=== PATIENT | female | born 1940 | race Caucasian/White ===

== ENCOUNTER 2019-08-15 10:42 | Emergency (ER) | payer MEDICARE, OTHER ==
--- NOTE | 2019-08-15 11:07 | ER Document Report ---
ED Medical Screen (RME) - General Chief Complaint: General Weakness Stated Complaint: WEAKNESS Time Seen by Provider: 08/15/19 10:56 Primary Care Provider: BURT ZAVALETA MD [Primary Care Provider] - Follow up as needed TRAVEL OUTSIDE OF THE [place] IN LAST 30 DAYS: No - HPI Notes: 08/15/19 11:04 6-year-old female with a past medical history of diabetes hypertension hyperl ipidemia presents to the emergency room for lethargy and confusion that started around 3:00 this morning. states that he woke up around 3:00 and patient was sitting at the foot of the bed, did not know which direction the bathroom was which was concerning to him. is concerned about a possible stroke. patient states her blood pressure is elevated today at 176/82, normalized in the 140s to 180s. Patient states she vomited all day yesterday. She did get her flu shot. Denies any chest pain shortness of breath, diarrhea, rashes. Denies any new medications. Patient is supposed to be going to [facility] tomorrow for a TIPS procedure. I have greeted and performed a rapid initial assessment of this patient. A comprehensive ED assessment and evaluation of the patient, analysis of test results and completion of the medical decision making process will be conducted by additional ED providers. PHYSICAL EXAMINATION: GENERAL: Well-appearing, well-nourished and in no acute distress. HEAD: Atraumatic, normocephalic. EYES: Pupils equal round extraocular movements intact, conjunctiva are normal. NECK: Normal range of motion LUNGS: No respiratory distress Musculoskeletal: Normal range of motion NEUROLOGICAL: Normal speech, normal gait. history tutor +2 equally. tongue midline. face symmetrical.AAO x3 PSYCH: Normal mood, normal affect. SKIN: Warm, Dry, normal turgor, no rashes or lesions noted. 08/15/19 11:06 - Related Data Allergies/Adverse Reactions: shellfish derived Allergy (Severe, Verified 08/15/19 10:49) BREATHING DIFFICULTIES soy Allergy (Severe, Verified 08/15/19 10:49) RESP DISTRESS ciprofloxacin [From Cipro] Adverse Reaction (Verified 08/15/19 10:49) Swelling of Throat duloxetine HCl [From Cymbalta] Adverse Reaction (Verified 08/15/19 10:49) Delirium ferrous sulfate Adverse Reaction (Verified 08/15/19 10:49) Nausea oxycodone HCl [From Percocet] Adverse Reaction (Verified 08/15/19 10:49) Nausea Past Medical History - Past Medical History Cardiac Medical History: Reports: Hx Hypertension - MEDICATED Denies: Hx Heart Attack Pulmonary Medical History: Denies: Hx Asthma Neurological Medical History: Denies: Hx Cerebrovascular Accident, Hx Seizures GI Medical History: Denies: Hx Hepatitis, Hx Ulcer Infectious Medical History: Denies: Hx Hepatitis Past Surgical History: Reports: Hx Open Heart Surgery - CABG X 3 2008. Denies: Hx Mastectomy, Hx Pacemaker Physical Exam - Vital signs Vitals: Temp Pulse Resp BP Pulse Ox 98.6 F 77 19 176/82 H 98 08/15/19 10:48 08/15/19 10:48 08/15/19 10:48 08/15/19 10:48 08/15/19 10:48 Course - Vital Signs Vital signs: Temp Pulse Resp BP Pulse Ox 98.6 F 77 19 176/82 H 98 08/15/19 10:48 08/15/19 10:48 08/15/19 10:48 08/15/19 10:48 08/15/19 10:48 Doctor's Discharge - Discharge Referrals: BURT ZAVALETA MD [Primary Care Provider] - Follow up as needed
[2019-08-15 12:20] LABS: ABSOLUTE EOSINOPHILS # (AUTO) 0.1 10^3/uL (0.0-0.6); ABSOLUTE LYMPHOCYTES (AUTO) 1.6 10^3/uL (0.5-4.7); ABSOLUTE MONOCYTES (AUTO) 0.9 10^3/uL (0.1-1.4); BASOPHILS % (AUTO) 0.3 % (0-2); EOSINOPHILS % (AUTO) 1.5 % (0-6); HEMATOCRIT 38.9 % (36.0-47.0); HEMOGLOBIN 13.5 g/dL (12.0-15.5); LYMPHOCYTES % (AUTO) 18.6 % (13-45); MEAN CORPUSCULAR HEMOGLOBIN 30.9 pg (27.0-33.4); MEAN CORPUSCULAR HGB CONC 34.7 g/dL (32.0-36.0); MEAN CORPUSCULAR VOLUME 89 fl (80-97); MONOCYTES % (AUTO) 10.1 % (3-13); PLATELET COUNT 143 10^3/uL (150-450); RED BLOOD COUNT 4.37 10^6/uL (3.72-5.28); RED CELL DISTRIBUTION WIDTH 16.4 % (11.5-14.0); SEGMENTED NEUTROPHILS % (AUTO) 69.5 % (42-78); TOTAL CELLS COUNTED % (AUTO) 100 %; WHITE BLOOD COUNT 8.6 10^3/uL (4.0-10.5)
[2019-08-15 12:24] LABS: INTERNATIONAL RATION (INR) 1.23; PARTIAL THROMBOPLASTIN TIME 31.4 SEC (23.5-35.8); PROTHROMBIN TIME 15.6 SEC (11.4-15.4)
--- NOTE | 2019-08-15 12:33 | RADIOLOGY REPORT (SQ) ---
EXAM DESCRIPTION: CT HEAD WITHOUT COMPLETED DATE/TIME: 08/15/2019 12:14 pm REASON FOR STUDY: AMS COMPARISON: None. TECHNIQUE: Axial images acquired through the brain without intravenous contrast. Images reviewed wi th bone, brain and subdural windows. Additional sagittal and coronal reconstructions were generated. Images stored on PACS. All CT scanners at this facility use dose modulation, iterative reconstruction, and/or weight based d osing when appropriate to reduce radiation dose to as low as reasonably achievable (ALARA). [facility]: Dose Right [facility]: CareDose [facility]: Dose Right [facility]: Teradose 4D [facility]: Smart Clinc! RADIATION DOSE: CT Rad equipment meets quality standard of care and radiation dose reduction techniq ues were employed. CTDIvol: 53.2 mGy. DLP: 1070 mGy-cm. mGy. LIMITATIONS: None. FINDINGS: VENTRICLES: Normal size and contour. CEREBRUM: No masses. No hemorrhage. No midline shift. No evidence for acute infarction. Normal gra y/white matter differentiation. No areas of low density in the white matter. CEREBELLUM: No masses. No hemorrhage. No alteration of density. No evidence for acute infarction. EXTRAAXIAL SPACES: No fluid collections. No masses. ORBITS AND GLOBE: No intra- or extraconal masses. Normal contour of globe without masses. CALVARIUM: No fracture. PARANASAL SINUSES: No fluid or mucosal thickening. SOFT TISSUES: No mass or hematoma. OTHER: No other significant finding. IMPRESSION: No acute intracranial pathology. EVIDENCE OF ACUTE STROKE: NO. COMMENT: Quality ID # [id number]: Final reports with documentation of one or more dose reduction techniques (e.g., Automated exposure control, adjustment of the mA and/or kV according to patient size, use of iterative reconstruction technique) TECHNICAL DOCUMENTATION: JOB ID: [id number] [employer]- All Rights Reserved Reading location - IP/workstation name: [email or web address]
--- NOTE | 2019-08-15 12:37 | RADIOLOGY REPORT (SQ) ---
EXAM DESCRIPTION: CHEST SINGLE VIEW COMPLETED DATE/TIME: 08/15/2019 12:09 pm REASON FOR STUDY: AMS COMPARISON: 05/14/2010 EXAM PARAMETERS: NUMBER OF VIEWS: One view. TECHNIQUE: Single frontal radiographic view of the chest acquired. RADIATION DOSE: NA LIMITATIONS: None. FINDINGS: LUNGS AND PLEURA: No opacities, masses or pneumothorax. No pleural effusion. MEDIASTINUM AND HILAR STRUCTURES: No masses. Contour normal. HEART AND VASCULAR STRUCTURES: Heart normal in size. Normal vasculature. BONES: No acute findings. HARDWARE: Sternotomy wires are in place. OTHER: No other significant finding. IMPRESSION: NO ACUTE RADIOGRAPHIC FINDING IN THE CHEST. TECHNICAL DOCUMENTATION: JOB ID: [id number] [employer]- All Rights Reserved Reading location - IP/workstation name: [email or web address]
[2019-08-15 12:39] LABS: ALBUMIN 4.1 g/dL (3.5-5.0); ALKALINE PHOSPHATASE 162 U/L (38-126); ANION GAP 13 (5-19); ASPARTATE AMINO TRANSFERASE 32 U/L (14-36); BILIRUBIN,DIRECT 0.1 mg/dL (0.0-0.4); BILIRUBIN,TOTAL 1.4 mg/dL (0.2-1.3); BLOOD UREA NITROGEN 36 mg/dL (7-20); CALCIUM 10.6 mg/dL (8.4-10.2); CARBON DIOXIDE 20 mmol/L (22-30); CHLORIDE 106 mmol/L (98-107); GLUCOSE 129 mg/dL (75-110); TOTAL PROTEIN 7.2 g/dL (6.3-8.2)
--- NOTE | 2019-08-15 14:12 | ER Document Report ---
ED General - General Chief Complaint: General Weakness Stated Complaint: WEAKNESS Time Seen by Provider: 08/15/19 10:56 Primary Care Provider: BURT ZAVALETA MD [Primary Care Provider] - Follow up as needed Notes: Ms. Adrian is a 78yo f w/ PMH diabetes, hypertension, hyperlipidemia, Palomares status post TIPS on 08 03 presenting to the ED for an episode of confusion and lethargy earlier today. states that he woke up sometime between 2 or 3 AM and found her standing at the foot of the bed. She asked him where the bathroom was and he told her. Then she told him "nevermind I do not have to go to the bathroom anymore" and went back to bed. Patient states that she had one very large episode of vomiting yesterday. The day prior, she had 3-4 episodes of nonbloody brown diarrhea. She also adds that she is supposed to be taking lactulose multiple times a day to ensure that she has at least 3 bowel movements daily status post TIPS procedure. Patient denies any fever, chills, chest pain, shortness of breath, cough, abdominal pain. However she does endorse that she has increased urinary frequency as well as dysuria. She also adds that she is scheduled to go to [place] tomorrow for a hiatal hernia repair. Later she and her remembered that she was diagnosed with a UTI this past Wednesday, initiated on doxycycline however she only took 2 days of this antibiotic. She states that her symptoms are still persistent. TRAVEL OUTSIDE OF THE [place] IN LAST 30 DAYS: No - Related Data Allergies/Adverse Reactions: shellfish derived Allergy (Severe, Verified 08/15/19 10:49) BREATHING DIFFICULTIES soy Allergy (Severe, Verified 08/15/19 10:49) RESP DISTRESS ciprofloxacin [From Cipro] Adverse Reaction (Verified 08/15/19 10:49) Swelling of Throat duloxetine HCl [From Cymbalta] Adverse Reaction (Verified 08/15/19 10:49) Delirium ferrous sulfate Adverse Reaction (Verified 08/15/19 10:49) Nausea oxycodone HCl [From Percocet] Adverse Reaction (Verified 08/15/19 10:49) Nausea Past Medical History - Social History Smoking Status: Never Smoker Family History: Reviewed & Not Pertinent Patient has suicidal ideation: No Patient has homicidal ideation: No - Past Medical History Cardiac Medical History: Reports: Hx Hypertension - MEDICATED Denies: Hx Heart Attack Pulmonary Medical History: Denies: Hx Asthma Neurological Medical History: Denies: Hx Cerebrovascular Accident, Hx Seizures GI Medical History: Denies: Hx Hepatitis, Hx Ulcer Infectious Medical History: Denies: Hx Hepatitis Past Surgical History: Reports: Hx Open Heart Surgery - CABG X 3 2008. Denies: Hx Mastectomy, Hx Pacemaker Review of Systems - Review of Systems Constitutional: See HPI EENT: No symptoms reported Cardiovascular: No symptoms reported Respiratory: No symptoms reported Gastrointestinal: See HPI Genitourinary: See HPI Female Genitourinary: See HPI Musculoskeletal: No symptoms reported Skin: No symptoms reported Hematologic/Lymphatic: No symptoms reported Neurological/Psychological: No symptoms reported Physical Exam - Vital signs Vitals: Temp Pulse Resp BP Pulse Ox 98.6 F 77 19 176/82 H 98 08/15/19 10:48 08/15/19 10:48 08/15/19 10:48 08/15/19 10:48 08/15/19 10:48 Interpretation: Hypertensive - General General appearance: Appears well, Alert - HEENT Head: Normocephalic, Atraumatic Eyes: Normal Pupils: PERRL - Respiratory Respiratory status: No respiratory distress Chest status: Nontender Breath sounds: Normal Chest palpation: Normal - Cardiovascular Rhythm: Regular Heart sounds: Normal auscultation Murmur: No - Abdominal Inspection: Normal Distension: No distension Bowel sounds: Normal Tenderness: Nontender Organomegaly: No organomegaly - Back Back: Normal, Nontender - Extremities General upper extremity: Normal inspection, Nontender, Normal color, Normal ROM, Normal temperature General lower extremity: Normal inspection, Nontender, Normal color, Normal ROM, Normal temperature, Normal weight bearing. No: Cheli's sign - Neurological Neuro grossly intact: Yes Cognition: Normal Orientation: AAOx4 Tyron Coma Scale Eye Opening: Spontaneous Tyron Coma Scale Verbal: Oriented Tyron Coma Scale Motor: Obeys Commands Tyron Coma Scale Total: 15 Speech: Normal Motor strength normal: LUE, RUE, LLE, RLE Sensory: Normal - Psychological Associated symptoms: Normal affect, Normal mood - Skin Skin Temperature: Warm Skin Moisture: Dry Skin Color: Normal Course - Re-evaluation Re-evalutation: Patient is generally well-appearing and nontoxic. Initial vitals notable for elevated blood pressure. Differential diagnosis includes UTI, pneumonia (less likely), encephalopathy, electrolyte abnormality, dehydration Here upon evaluation, the patient is AxO x4 and is able to answer questions without any issues. Patient has otherwise completely normal neuro examination. Patient does states she is not taking her lactulose and therefore could have an elevated ammonia. CBC otherwise unremarkable. H&H is stable. PT/INR notable for mildly elevated INR, consistent with known liver disease. CMP notable for mildly elevated bili. Alk phos is slightly elevated at 162. 08/15/19 14:12 CT head and chest x-ray both within normal limits. No acute findings. 08/15/19 16:29 insists patient updated on results. Ammonia is elevated at 64 therefore will administer dose of lactulose now. Patient did state that she forgot to take any of her lactulose today. Patient's UA also was consistent with a UTI. She was diagnosed with a UTI on Wednesday by her primary care doctor and initiated on doxycycline however she only took antibiotics on Wednesday, Wednesday and Wednesday. 08/15/19 17:08 Patient given ceftriaxone here. Will DC with Keflex. Recommended that she completely stop her doxycycline altogether. Nursing staff took time to coordinate patient's care with her team at [facility] for her upcoming TIPS procedure. Family provided with return precautions. Recommended she continue using her lactulose when she goes home. Patient did have a large bowel movement here in the ED. - Vital Signs Vital signs: Temp Pulse Resp BP Pulse Ox 97.5 F 78 14 145/62 H 98 08/15/19 19:31 08/15/19 19:31 08/15/19 19:31 08/15/19 19:31 08/15/19 19:31 - Laboratory Result Diagrams: 08/15/19 11:35 08/15/19 11:35 Laboratory results interpreted by me: 08/15/19 08/15/19 08/15/19 11:03 11:31 11:35 RDW 16.4 H Plt Count 143 L PT Carbon Dioxide BUN Glucose POC Glucose 133 H 127 H Calcium Total Bilirubin Alkaline Phosphatase Ammonia NT-Pro-B Natriuret Pep Urine Blood Urine Nitrite Ur Leukocyte Esterase Urine Ascorbic Acid 08/15/19 08/15/19 08/15/19 11:35 11:35 11:35 RDW Plt Count PT 15.6 H Carbon Dioxide 20 L BUN 36 H Glucose 129 H POC Glucose Calcium 10.6 H Total Bilirubin 1.4 H Alkaline Phosphatase 162 H Ammonia NT-Pro-B Natriuret Pep 813 H Urine Blood Urine Nitrite Ur Leukocyte Esterase Urine Ascorbic Acid 08/15/19 08/15/19 13:15 14:28 RDW Plt Count PT Carbon Dioxide BUN Glucose POC Glucose Calcium Total Bilirubin Alkaline Phosphatase Ammonia 64.0 H NT-Pro-B Natriuret Pep Urine Blood SMALL H Urine Nitrite POSITIVE H Ur Leukocyte Esterase SMALL H Urine Ascorbic Acid 20 H Discharge - Discharge Clinical Impression: UTI (urinary tract infection), Confusion, Hyperammonemia Condition: Good Disposition: HOME, SELF-CARE Instructions: Cephalexin ([facility]), Urinary Tract Infection ([facility]) Additional Instructions: It is important that you take at least 1-2 additional doses of your lactulose this evening. You have been prescribed antibiotics for your urinary tract infection. Make sure you take the full course of antibiotics and do not stop them early. You do not need to use the previous antibiotics that you were prescribed (doxycycline). I would recommend that you follow-up with your primary care doctor. In addition, when you go to do, I would also recommend that you tell them that you have a urinary tract infection and that your ammonia today was 64. It is important that you have multiple bowel movements this evening and tomorrow morning therefore please make sure you take additional do ses of lactulose this evening. Prescriptions: Cephalexin Monohydrate [Keflex 500 mg Capsule] 500 mg PO TID 6 Days #18 capsule Referrals: BURT ZAVALETA MD [Primary Care Provider] - Follow up as needed
--- NOTE | 2019-08-15 14:22 | EKG REPORT ---
SEVERITY:- ABNORMAL ECG - SINUS RHYTHM FIRST DEGREE AV BLOCK LVH WITH IVCD AND SECONDARY REPOL ABNRM : Confirmed by: Maninder Davidson 15-Aug-2019 14:22:08
[2019-08-15 15:02] LABS: APPEARANCE,URINE CLEAR; BILIRUBIN,URINE NEGATIVE (NEGATIVE); COLOR,URINE YELLOW; GLUCOSE, URINE NEGATIVE (NEGATIVE); KETONES,URINE NEGATIVE (NEGATIVE); LEUKOCYTE ESTERASE,URINE SMALL (NEGATIVE); NITRITE,URINE POSITIVE (NEGATIVE); PROTEIN,URINE NEGATIVE (NEGATIVE); URINE SPECIFIC GRAVITY 1.013; UROBILINOGEN,URINE NEGATIVE mg/dL (<2.0)
[2019-08-15] MEDS ORDERED: LACTULOSE SYRUP 20 GM/30 ML UDCUP PO ONE (16:28)
[2019-08-15] MEDS ORDERED: CEFTRIAXONE 1 GM/D5W RTU 1 GM/50 ML RTUPB IV ONE (16:28)
[2019-08-15 19:32] VITALS: BP 145/62
== END 2019-08-15 18:30 | disposition home or self-care (01) ==
LOC: ER 10:42
DX: N39.0 Urinary tract infection, site not specified (principal); E72.20 Disorder of urea cycle metabolism, unspecified; F44.89 Other dissociative and conversion disorders; R53.1 Weakness; R11.10 Vomiting, unspecified; E78.00 Pure hypercholesterolemia, unspecified; I10 Essential (primary) hypertension; E11.9 Type 2 diabetes mellitus without complications; Z88.3 Allergy status to other anti-infective agents; Z95.1 Presence of aortocoronary bypass graft
CPT/HCPCS: 93005; 99285; 51701; 96365; 36415; 82962; 82140; 85025; 85610; 85730; 80053; 81001; 84484; 83880; 71045; 70450; 93010; A9270; J0696

== ENCOUNTER 2019-09-16 02:06 | Emergency (ER) | payer MEDICARE, OTHER ==
--- NOTE | 2019-09-16 03:23 | ER Document Report ---
ED Head/Face/Scalp Injury - General Chief Complaint: Facial Injury Stated Complaint: FALL/FACIAL INJURY Time Seen by Provider: 09/16/19 02:31 Primary Care Provider: BURT ZAVALETA MD [Primary Care Provider] - Follow up in 3-5 days Mode of Arrival: Ambulatory Information source: Patient Notes: 78-year-old female presented to ED for complaint of falling hitting her face when she tripped over the blanket when she got up tonight. She states she was concerned because she just had a TIPS procedure on August 03 but is not having any abdominal pain at this time. Patient states she did not have any dizziness any headache she just tripped over the blanket and fell. TRAVEL OUTSIDE OF THE [place] IN LAST 30 DAYS: No - HPI Patient complains to provider of: Contusion, Injury, Swelling Injury to: Face, Forehead Location of problem: Other - Around the right eye and to the right cheek and just above the right side of her mouth Occurred: Just prior to arrival Where: Home, Indoors Timing: Still present Context: Fell Loss consciousness: No loss of consciousness Remembers: Injury, Coming to hospital - Related Data Allergies/Adverse Reactions: shellfish derived Allergy (Severe, Verified 08/15/19 10:49) BREATHING DIFFICULTIES soy Allergy (Severe, Verified 08/15/19 10:49) RESP DISTRESS ciprofloxacin [From Cipro] Adverse Reaction (Verified 08/15/19 10:49) Swelling of Throat duloxetine HCl [From Cymbalta] Adverse Reaction (Verified 08/15/19 10:49) Delirium fentanyl Adverse Reaction (Verified 09/16/19 02:26) Nausea ferrous sulfate Adverse Reaction (Verified 08/15/19 10:49) Nausea NSAIDS (Non-Steroidal Anti-Inflamma Adverse Reaction (Verified 09/16/19 02:26) oxycodone HCl [From Percocet] Adverse Reaction (Verified 08/15/19 10:49) Nausea Home Medications: aspirin, carvedilol, clotrimazole-betamethasone, esomeprazole, ezetimibe, lactulose, letrozole, mag oxide, multivitamin, miralax, occuvite, sotalol, sprionolactone, torsemide, toviaz, tresiba, trulicity, vitamin c, vitamin d, vitamin e, xifaxan, zinc sulfate, Past Medical History - General Information source: Patient - Social History Smoking Status: Never Smoker Chew tobacco use (# tins/day): No Frequency of alcohol use: None Drug Abuse: None Lives with: Family Family History: Reviewed & Not Pertinent Patient has suicidal ideation: No Patient has homicidal ideation: No - Past Medical History Cardiac Medical History: Reports: Hx Coronary Artery Disease, Hx Hypercholesterolemia, Hx Hypertension - MEDICATED Pulmonary Medical History: Reports: None EENT Medical History: Reports: None Neurological Medical History: Reports: None Endocrine Medical History: Reports: None Renal/ Medical History: Reports: None Malignancy Medical History: Reports: Hx Breast Cancer GI Medical History: Reports: Hx Colonoscopy, Hx Endoscopy Musculoskeletal Medical History: Reports Hx Arthritis, Reports Hx Musculoskeletal Deformity, Reports Hx Musculoskeletal Trauma Skin Medical History: Reports None Psychiatric Medical History: Reports: None Infectious Medical History: Reports: None Past Surgical History: Reports: Hx Breast Surgery - Right breast lumpectomy, Hx Cholecystectomy, Hx Open Heart Surgery - CABG X 3 2008, Hx Orthopedic Surgery - Left knee replacement back surgery, Hx Vascular Surgery - TIPS procedure. Denies: Hx Mastectomy - Lumpectomy Review of Systems - Review of Systems Constitutional: No symptoms reported EENT: Other - Faith-orbital hematoma Cardiovascular: No symptoms reported Respiratory: No symptoms reported Gastrointestinal: No symptoms reported Genitourinary: No symptoms reported Female Genitourinary: No symptoms reported Musculoskeletal: No symptoms reported Skin: Other - Patient has periorbital ecchymosis also bruising to the right side of her face. Bruises to her arm Hematologic/Lymphatic: No symptoms reported Neurological/Psychological: No symptoms reported -: Yes All other systems reviewed and negative Physical Exam - Vital signs Vitals: Temp Pulse Resp BP Pulse Ox 97.5 F 76 16 114/65 96 09/16/19 02:13 09/16/19 02:13 09/16/19 02:13 09/16/19 02:13 09/16/19 02:13 Interpretation: Normal - General General appearance: Appears well, Alert - HEENT Head: Normocephalic, Atraumatic Eyes: Normal Pupils: PERRL - Respiratory Respiratory status: No respiratory distress Chest status: Nontender Breath sounds: Normal Chest palpation: Normal - Cardiovascular Rhythm: Regular Heart sounds: Normal auscultation Murmur: No - Abdominal Inspection: Normal Distension: No distension Bowel sounds: Normal Tenderness: Nontender Organomegaly: No organomegaly - Back Back: Normal, Nontender - Extremities General upper extremity: Normal inspection, Nontender, Normal color, Normal ROM, Normal temperature General lower extremity: Normal inspection, Nontender, Normal color, Normal ROM, Normal temperature, Normal weight bearing. No: Cheli's sign - Neurological Neuro grossly intact: Yes Cognition: Normal Orientation: AAOx4 [place] Coma Scale Eye Opening: Spontaneous [place] Coma Scale Verbal: Oriented [place] Coma Scale Motor: Obeys Commands [place] Coma Scale Total: 15 Speech: Normal Cranial nerves: Normal Cerebellar coordination: Normal Motor strength normal: LUE, RUE, LLE, RLE Additional motor exam normals: Equal service delivery consultant Babinski reflex: Normal (flexor plantar) Sensory: Normal Biceps - Reflex grade: 2 = Normal Triceps - Reflex grade: 2 = Normal Brachioradialis - Reflex grade: 2 = Normal Knee - Reflex grade: 2 = Normal Ankle - Reflex grade: 2 = Normal - Psychological Associated symptoms: Normal affect, Normal mood - Skin Skin Temperature: Warm Skin Moisture: Dry Skin Color: Normal Course - Re-evaluation Re-evalutation: 09/16/19 09:24 Labs, CTA, and x-rays were given to patient for follow-up with her primary doctor. Patient was alert oriented respirations regular nonlabored speaking in full sentences. Patient denied any pain throughout her visit but she stated she would like some pain medicine and nausea medicine because this is probably going to start hurting later. Patient was discharged home with [place] [facility] dispense pack and encouraged to follow-up with her primary care doctor as soon as possible. Patient and verbalized understanding and agreement with treatment plan and patient was discharged home. - Vital Signs Vital signs: Temp Pulse Resp BP Pulse Ox 97.6 F 72 18 151/59 H 98 09/16/19 06:21 09/16/19 06:21 09/16/19 06:21 09/16/19 06:21 09/16/19 06:21 - Laboratory Result Diagrams: 09/16/19 03:45 09/16/19 03:45 Laboratory results interpreted by me: 09/16/19 09/16/19 03:45 03:45 RBC 3.17 L Hgb 10.6 L Hct 30.1 L RDW 19.2 H Plt Count 76 L Potassium 3.4 L BUN 24 H Glucose 231 H AST 43 H Alkaline Phosphatase 216 H - Diagnostic Test Radiology reviewed: Image reviewed, Reports reviewed Discharge - Discharge Clinical Impression: Fall Qualifiers: Encounter type: initial encounter Qualified Code(s): W19.XXXA - Unspecified fall, initial encounter Facial contusion Qualifiers: Encounter type: initial encounter Qualified Code(s): S00.83XA - Contusion of other part of head, initial encounter Disposition: HOME, SELF-CARE Additional Instructions: CONTUSION: Your injury has resulted in a contusion -- a crushing of the deep tissues. No injury to important structures was detected during the physician's exam. Contusions vary in the amount of pain they cause, and in the length of time required for healing. Typically, the area will become bruised, and will remain painful to touch for two or three weeks. However, most patients are back to working and playing within a few days. After the initial period of rest and cold-packs, your symptoms (together with the doctor's recommendations) will determine how rapidly you can get back to full activity. Usually this means "do what feels okay, but don't do things that hurt." If re-examination was recommended, it's important to follow up as instructed. Call the doctor or return any time if pain increases, if swelling becomes severe, if you develop numbness or weakness in an injured extremity, or if any other alarming symptoms occur. USE OF TYLENOL (ACETAMINOPHEN): Acetaminophen may be taken for pain relief or fever control. It's much safer than aspirin, offering a wider range of "safe" dosages. It is safe during . Some brand names are Tylenol, Panadol, Datril, Anacin 3, Tempra, and Liquiprin. Acetaminophen can be repeated every four hours. The following are maximum recommended dosages: WEIGHT Dose Drops Elixir Chewable(80mg) (LBS.) drprs=droppers tsp=teaspoon 6 40 mg 0.4 ml (1/2) 6-11 80 mg 0.8 ml (full) tsp 1 tab 12-16 120 mg 1 1/2 drprs 3/4 tsp 1 1/2 tabs 17-23 160 mg 2 drprs 1 tsp 2 tabs 24-30 240 mg 3 drprs 1 1/2 tsp 3 tabs 30-35 320 mg 2 tsp 4 tabs 36-41 360 mg 2 1/4 tsp 4 1/2 tabs 42-47 400 mg 2 1/2 tsp 5 tabs 48-53 480 mg 3 tsp 6 tabs 54-59 520 mg 3 1/4 tsp 6 1/2 tabs 60-64 560 mg 3 1/2 tsp 7 tabs 65-70 600 mg 3 3/4 tsp 7 1/2 tabs 71-76 640 mg 4 tsp 8 tabs 77-82 720 mg 4 1/2 tsp 9 tabs 83-88 800 mg 5 tsp 10 tabs >89 pounds or adults 650 mg to 900 mg Acetaminophen can be repeated every four hours. Maximum dose not to exceed 4000 mg a day. These maximum recommended dosages are slightly higher than the dosages written on the product container, but these dosages are very safe and below the toxic dosage for acetaminophen. ICE PACKS: Apply ice packs frequently against the painful area. Many different schedules are recommended, such as "20 minutes on, 20 minutes off" or "one hour ice, two hours rest." If you need to work, you may need to go longer between ice treatments. You should plan to have the area ice packed AT LEAST one fourth of the time. The ice should be applied over the wrap, tape, or splint, or over a layer of cloth -- not directly against the skin. Some ice bags have a built-in cloth and can be put directly on the skin. WARM PACKS: After approximately two days, apply gentle heat (such as a heating pad or hot water bottle) for about 20 to 30 minutes about every two hours -- at least four times daily. Warmth and elevation will help you make a more rapid recovery, and will ease the pain considerably. Do not use HOT heat, and never apply heat for longer than 30 minutes. The continuous heat can invisibly damage skin and muscles -- even when no burn is seen on the surface. Damaged muscles can make you MORE sore. Antinausea Medication You have been given a medication to suppress nausea and vomiting. This type of medication can be given as a shot, pill, or suppository. It will usually last for many hours. Pills and shots usually last six to eight hours, suppositories last about 12 hours. For the typical illness, only one or two doses of the medication may be necessary. Mild lightheadedness may occur. This type of medicine can cause drowsiness. Do not drive or operate dangerous machinery while under its influence. Do not mix with alcohol. See your doctor at once if you have muscle spasms or tightness, or uncontrollable motions (particularly of the neck, mouth, or jaw). Persistent vomiting or severe lightheadedness should also be evaluated by the physician. Oral Narcotic Medication You have been given a prescription for pain control. This medication is a narcotic. It's best taken with food, as nausea can result if taken on an empty stomach. Don't operate machinery or drive within six hours of taking this medication. Do not combine this medicine with alcohol, or with any medication which can cause sedation (such as cold tablets or sleeping pills) unless you get permission from the physician. Narcotics tend to cause constipation. If possible, drink plenty of fluids and eat a diet high in fiber and fruits. FOLLOW-UP CARE: If you have been referred to a physician for follow-up care, call the physicians office for an appointment as you were instructed or within the next two days. If you experience worsening or a significant change in your symptoms, notify the physician immediately or return to the Emergency Department at any time for re-evaluation. Please take your written reports for your labs and your CTs to your primary care doctor for follow-up. Referrals: BURT ZAVALETA MD [Primary Care Provider] - Follow up in 3-5 days
[2019-09-16 04:03] LABS: ABSOLUTE EOSINOPHILS # (AUTO) 0.1 10^3/uL (0.0-0.6); ABSOLUTE LYMPHOCYTES (AUTO) 0.7 10^3/uL (0.5-4.7); ABSOLUTE MONOCYTES (AUTO) 0.4 10^3/uL (0.1-1.4); ABSOLUTE NEUT (AUTO) 2.7 10^3/uL (1.7-8.2); BASOPHILS % (AUTO) 0.8 % (0-2); EOSINOPHILS % (AUTO) 1.8 % (0-6); HEMATOCRIT 30.1 % (36.0-47.0); HEMOGLOBIN 10.6 g/dL (12.0-15.5); LYMPHOCYTES % (AUTO) 18.8 % (13-45); MEAN CORPUSCULAR HEMOGLOBIN 33.4 pg (27.0-33.4); MEAN CORPUSCULAR HGB CONC 35.1 g/dL (32.0-36.0); MEAN CORPUSCULAR VOLUME 95 fl (80-97); MONOCYTES % (AUTO) 11.2 % (3-13); RED BLOOD COUNT 3.17 10^6/uL (3.72-5.28); RED CELL DISTRIBUTION WIDTH 19.2 % (11.5-14.0); SEGMENTED NEUTROPHILS % (AUTO) 67.4 % (42-78); TOTAL CELLS COUNTED % (AUTO) 100 %
[2019-09-16 04:16] LABS: ALBUMIN 3.6 g/dL (3.5-5.0); ALKALINE PHOSPHATASE 216 U/L (38-126); ANION GAP 8 (5-19); ASPARTATE AMINO TRANSFERASE 43 U/L (14-36); BILIRUBIN,DIRECT 0.3 mg/dL (0.0-0.4); BILIRUBIN,TOTAL 1.3 mg/dL (0.2-1.3); BLOOD UREA NITROGEN 24 mg/dL (7-20); CALCIUM 9.9 mg/dL (8.4-10.2); CARBON DIOXIDE 28 mmol/L (22-30); CHLORIDE 103 mmol/L (98-107); GLUCOSE 231 mg/dL (75-110); POTASSIUM 3.4 mmol/L (3.6-5.0); TOTAL PROTEIN 6.3 g/dL (6.3-8.2)
--- NOTE | 2019-09-16 04:17 | RADIOLOGY REPORT (SQ) ---
EXAM DESCRIPTION: CT HEAD WITHOUT IV CONTRAST COMPLETED DATE/TME: 09/16/2019 02:48 CLINICAL HISTORY: 78 years, Female, fall head injury COMPARISON: 08/15/2019 TECHNIQUE: Axial CT images of the brain were obtained without contrast. Sagittal and coronal reformats were performed. [facility] 1043 Images stored on PACS. All CT scanners at this facility use dose modulation, iterative reconstruction, and/or weight based dosing when appropriate to reduce radiation dose to as low as reasonably achievable (ALARA). [facility]: Dose Right [facility]: CareDose [facility]: Dose Right [facility]: Teradose 4D [facility]: [employer] LIMITATIONS: None. FINDINGS: There is soft tissues swelling along the right periorbital and preseptal soft tissues. The globes are intact. There is no retro-orbital hematoma. There is no acute cortical infarct, hemorrhage, mass, edema, hydrocephalus, or extra-axial fluid collection. The roach-white differentiation is preserved. The brain volume is age-appropriate. The paranasal sinuses and mastoid air cells are clear. There is no depressed calvarial fracture. IMPRESSION: No acute intracranial abnormality. TECHNICAL DOCUMENTATION: Quality ID # 436: Final reports with documentation of one or more dose reduction techniques (e.g., Automated exposure control, adjustment of the mA and/or kV according to patient size, use of iterative reconstruction technique) copyright 2011 [employer]- All Rights Reserved
--- NOTE | 2019-09-16 04:19 | RADIOLOGY REPORT (SQ) ---
EXAM DESCRIPTION: CT MAXILLOFACIAL WITHOUT IV CONTRAST COMPLETED DATE/TME: 09/16/2019 02:41 CLINICAL HISTORY: 78 years, Female, fall injury pain COMPARISON: None. TECHNIQUE: Axial CT images of the maxillofacial region were obtained without contrast. Sagittal and coronal reformats were performed. [facility] 550 Images stored on PACS. All CT scanners at this facility use dose modulation, iterative reconstruction, and/or weight based dosing when appropriate to reduce radiation dose to as low as reasonably achievable (ALARA). [facility]: Dose Right [facility]: CareDose [facility]: Dose Right [facility]: Teradose 4D [facility]: [employer] LIMITATIONS: None. FINDINGS: There is soft tissue swelling along the right periorbital and preseptal soft tissues. The globes are intact. There is no retro-orbital hematoma. The orbits are intact. The mandible and maxilla are intact. Zygomatic arches are intact. Nasal bones and nasal septum are intact. The paranasal sinuses are clear. IMPRESSION: No CT evidence of acute maxillofacial fracture. TECHNICAL DOCUMENTATION: Quality ID # 436: Final reports with documentation of one or more dose reduction techniques (e.g., Automated exposure control, adjustment of the mA and/or kV according to patient size, use of iterative reconstruction technique) copyright 2010 [employer]- All Rights Reserved
[2019-09-16 04:20] LABS: PLATELET COUNT 76 10^3/uL (150-450)
--- NOTE | 2019-09-16 06:06 | RADIOLOGY REPORT (SQ) ---
EXAM: CT Abdomen and Pelvis With Intravenous Contrast EXAM DATE/TIME: 09/16/2019 4:33 AM CLINICAL HISTORY: The patient is 78 years old and is Female; fall recent tips procedure TECHNIQUE: Axial computed tomography images of the abdomen and pelvis with intravenous contrast. Delayed images were obtained. Sagittal and coronal reformatted images were created and reviewed. This CT exam was performed using one or more of the following dose reduction techniques: automated exposure control, adjustment of the mA and/or kV according to patient size, and/or use of iterative reconstruction technique. COMPARISON: No relevant prior studies available. FINDINGS: LUNG BASES: Minimal bibasilar atelectasis. HEART: Mild cardiomegaly. ABDOMEN: LIVER: The liver is slightly nodular in contour, suggesting cirrhosis. No obvious liver mass. TIPS in place. GALLBLADDER AND BILE DUCTS: Unremarkable. No calcified stones. No significant biliary ductal dilatation. PANCREAS: The pancreas is atrophic. There is a cystic lesion within the uncinate process of the pancreas measuring 2.0 x 1.4 cm (series 3, image 39). No pancreatic ductal dilatation. No peripancreatic stranding. SPLEEN: The spleen is enlarged, measuring 15.5 cm in diameter. There are a few small hypodense foci in the spleen on the initial contrast phase which are isodense with the remainder of the spleen on the delayed images. These may represent small hemangiomas. ADRENALS: Unremarkable. No adrenal nodules or masses identified. KIDNEYS AND URETERS: There is mild asymmetric prominence of the left renal pelvis, without significant hydronephrosis. No renal or ureteral stones visualized. No solid renal mass. STOMACH AND BOWEL: Duodenal diverticulum noted. No evidence of bowel obstruction. No significant bowel wall thickening. Colonic diverticulosis is noted, without associated inflammatory changes to suggest diverticulitis. PELVIS: APPENDIX: The appendix is unremarkable. BLADDER: Unremarkable. No obvious mass. REPRODUCTIVE: The uterus is atrophic. ABDOMEN and PELVIS: INTRAPERITONEAL SPACE: Unremarkable. No free air. No significant fluid collection. BONES/JOINTS: Degenerative changes of the spine. No acute fracture. No dislocation. SOFT TISSUES: Moderately sized umbilical hernia containing fat and fluid. Stranding is also noted within the hernia sac. Small subcutaneous nodular densities within the anterior pelvic wall are likely related to subcutaneous injections. VASCULATURE: Atherosclerotic calcifications are noted. No aortic aneurysm. The portal vein is patent. LYMPH NODES: No significant lymph node enlargement. IMPRESSION: 1. Moderately sized umbilical hernia containing fat and fluid. Stranding is also noted within the hernia sac. 2. Splenomegaly. 3. Small cystic lesion within the pancreas measuring 2.1 cm. ACR White Paper guidelines (Karen, et al. JACR 2010; 7(10):754-86) suggest further evaluation with pancreas-dedicated MRI with MRCP. 4. Colonic diverticulosis without evidence of diverticulitis.
[2019-09-16] MEDS ORDERED: ONDANSETRON ODT 4 MG TAB (6 TAB/ER DISP) PO PRN (06:09)
[2019-09-16] MEDS ORDERED: HYDROCODONE/ACETAMINOPHEN 5-325 MG (6 TAB/ER DISP) PO PRN (06:16)
[2019-09-16 06:23] VITALS: BP 151/59
== END 2019-09-16 06:29 | disposition home or self-care (01) ==
LOC: ER 02:06
DX: S00.83XA Contusion of other part of head, initial encounter (principal); S00.11XA Contusion of right eyelid and periocular area, initial encounter; S09.93XA Unspecified injury of face, initial encounter; S40.021A Contusion of right upper arm, initial encounter; W01.0XXA Fall on same level from slipping, tripping and stumbling without subsequent striking against object, initial encounter; Y92.009 Unspecified place in unspecified non-institutional (private) residence as the place of occurrence of the external cause; I10 Essential (primary) hypertension; I25.10 Atherosclerotic heart disease of native coronary artery without angina pectoris; E78.00 Pure hypercholesterolemia, unspecified; Z88.1 Allergy status to other antibiotic agents; Z91.013 Allergy to seafood; Z90.49 Acquired absence of other specified parts of digestive tract; Z95.1 Presence of aortocoronary bypass graft; Z98.890 Other specified postprocedural states
CPT/HCPCS: 99284; 36415; 85025; 80053; 70450; 70486; 74177; A9270 ×2